=== PATIENT | male | born 1955 | race Caucasian/White ===

== ENCOUNTER 2022-05-06 06:58 | Emergency (ER) | payer MEDICARE, OTHER ==
[2022-05-06 08:05] LABS: HEMOGLOBIN 15.9 gm/dl (14.0-17.5); RED BLOOD COUNT 5.16 M/UL (4.20-5.50); WHITE BLOOD COUNT 9.6 K/UL (4.5-11.0)
[2022-05-06 08:23] LABS: BUN/CREATININE RATIO 13 (0-10)
[2022-05-06] MEDS ORDERED: CLEOCIN HCL300 MG PO (09:17)
== END 2022-05-06 09:32 | disposition home or self-care (01) ==
LOC: ER1 06:58
PROVIDERS: Emergency Medicine
DX: L03.211 Cellulitis of face (principal)
CPT/HCPCS: 70450; 80053; 85025; 85652; 86140; 87040; 99284

== ENCOUNTER 2022-05-10 11:53 | Inpatient (IN) | payer MEDICARE, OTHER ==
[~2022-05-10] VITALS: Ht 177.8 cm; Wt 79.4 kg
[~2022-05-10 11:53] MED LIST: CLEOCIN HCL300 MG PO
[2022-05-10 14:35] LABS: HEMOGLOBIN 14.5 gm/dl (14.0-17.5); RED BLOOD COUNT 4.77 M/UL (4.20-5.50)
[2022-05-10 14:45] LABS: BUN/CREATININE RATIO 12 (0-10)
[2022-05-10] MEDS ORDERED: OMEPRAZOLE40 MG PO (17:50)
[2022-05-10] MEDS ORDERED: AMLODIPINE BESY10 MG PO (17:50)
[2022-05-10] MEDS ORDERED: MAGNESIUM400 M2 PO (17:51)
[2022-05-10] MEDS ORDERED: ATORVASTATIN CA10 MG PO (17:51)
[2022-05-10] MEDS ORDERED: ASPIRIN EC81 MG PO (17:51)
[2022-05-10] MEDS ORDERED: VITAMIN B-125000 MC2 PO (17:52)
[2022-05-10] MEDS ORDERED: ZINC50 M1 PO (17:53)
[2022-05-10] MEDS ORDERED: VITAMIN C500 M4 PO (17:53)
[2022-05-10] MEDS ORDERED: MULTIVITAMIN1 EACH PO (17:54)
[2022-05-11 02:46] LABS: HEMOGLOBIN 14.3 gm/dl (14.0-17.5); RED BLOOD COUNT 4.73 M/UL (4.20-5.50); WHITE BLOOD COUNT 8.9 K/UL (4.5-11.0)
[2022-05-11 17:25] LABS: BUN/CREATININE RATIO 12 (0-10)
[2022-05-12] MEDS ORDERED: BACTRIM DS TAB1 EACH PO (09:12)
[2022-05-12] MEDS ORDERED: CEPHALEXIN500 MG PO (09:12)
== END 2022-05-12 12:46 | disposition home or self-care (01) | DRG 603 ==
LOC: ER1 11:53 → CDU 15:48 → M/S 15:48
PROVIDERS: Nurse Practitioner; Physician Assistant; ADMIT Internal Medicine
DX: L03.211 Cellulitis of face (principal); Z20.822 Contact with and (suspected) exposure to COVID-19; R79.89 Other specified abnormal findings of blood chemistry; I10 Essential (primary) hypertension; K21.9 Gastro-esophageal reflux disease without esophagitis; E78.5 Hyperlipidemia, unspecified; Z85.89 Personal history of malignant neoplasm of other organs and systems; Z79.01 Long term (current) use of anticoagulants; Z79.82 Long term (current) use of aspirin; Z88.1 Allergy status to other antibiotic agents; Z88.0 Allergy status to penicillin; Z88.8 Allergy status to other drugs, medicaments and biological substances; Z83.3 Family history of diabetes mellitus
CPT/HCPCS: 36415; 80048; 80053; 80202; 81001; 83605; 85025; 85652; 86140; 87040; 96374; 99284; J0692; J3370; J7030; J7070